=== PATIENT | female | born 1980 | race Caucasian/White ===

== ENCOUNTER 2019-03-28 16:37 | Inpatient (IN) | payer SELFPAY ==
[~2019-03-28] VITALS: Ht 160 cm; Wt 100.0 kg
[~2019-03-28 16:37] MED LIST: ALPR1TAB2 PO; ESTR1TAB15 PO; FLUO40CA9 PO; HYDR-2769 PO
[2019-03-28] MEDS ORDERED: IV NORMAL SALINE 1,000ML 1,000 ML IV SCH (16:53)
[2019-03-28] MEDS ORDERED: IPRATRPIUM/ALBUTEROL 0.5/2.5MG 3 ML NEBU. NEB ONE (17:00)
--- NOTE | 2019-03-28 17:02 | PHYS DOC ---
Past History Past Medical History: Anxiety, Bipolar, Depression, Endometriosis, Fibromyalgia (JACOBY HARDY DO) Past Surgical History: Cholecystectomy, , Hysterectomy (JACOBY HARDY DO) Smoking: Less than 1pk/day Alcohol Use: Occasionally Drug Use: None (JACOBY HARDY DO) Adult General Chief Complaint Chief Complaint: SHORTNESS OF BREATH HPI HPI Patient is a 38-year-old female presents complaining of fever, cough, and shortness of breath. Increased shortness of breath with exertion. This started approximately 3 days ago. No nausea or vomiting. No out of the country travel. Nonproductive cough. No new leg swelling. Exertion makes symptoms worse. Rest makes them better. She is a smoker, having stopped 2 days ago when symptoms started[] (JACOBY HARDY DO) Review of Systems Review of Systems Constitutional: Denies shaking chills, subjective fever. No home temperature has been taken [] Eyes: Denies change in visual acuity, redness, or eye pain [] HENT: Denies nasal congestion or sore throat [] Respiratory: See history of present illness[] Cardiovascular: No chest pain or palpitations[] GI: Denies abdominal pain, nausea, vomiting, bloody stools or diarrhea [] : Denies dysuria or hematuria [] Musculoskeletal: Denies back pain or joint pain [] Integument: Denies rash or skin lesions [] Neurologic: Denies headache, focal weakness or sensory changes [] Endocrine: Denies polyuria or polydipsia [] All other systems were reviewed and found to be within normal limits, except as documented in this note. (JACOBY HARDY DO) Allergies Allergies Allergies Coded Allergies Type Severity Reaction Last Updated Verified loratadine Allergy Mild Anxiety 01/20/14 No pseudoephedrine Allergy Mild Anxiety 01/20/14 No (JACOBY HARDY DO) Physical Exam Physical Exam Constitutional: Well developed, well nourished, no acute distress, non-toxic appearance. [] HENT: Normocephalic, atraumatic, bilateral external ears normal, oropharynx moist, no oral exudates, nose normal. [] Eyes: PERRLA, EOMI, conjunctiva normal, no discharge. [] Neck: Normal range of motion, no tenderness, supple, no stridor. [] Cardiovascular:Heart rate is tachycardic in the 100s with a regular rhythm, no murmur [] Lungs & Thorax: Bilateral breath sounds with expiratory wheezes, no retr actions[] Abdomen: Bowel sounds normal, soft, no tenderness, no masses, no pulsatile masses. [] Skin: Warm, dry, no erythema, no rash. [] Back: No tenderness, no CVA tenderness. [] Extremities: No tenderness, no cyanosis, no clubbing, ROM intact, no edema. [] Neurologic: Alert and oriented X 3, normal motor function, normal sensory function, no focal deficits noted. [] Psychologic: Affect normal, judgement normal, mood normal. [] (JACOBY HARDY DO) Current Patient Data Vital Signs Vital Signs Date Time Temp Pulse Resp B/P (MAP) Pulse Ox O2 Delivery O2 Flow Rate FiO2 03/28/19 16:37 98.3 110 26 150/89 (109) 92 Room Air (JACOBY HARDY DO) EKG EKG EKG shows a sinus tachycardia at 105 bpm, normal axis, QTC of 459 ms, no ST elevations. Interpreted by me at 1712.[] (JACOBY HARDY DO) Radiology/Procedures Radiology/Procedures [] (JACOBY HARDY DO) Radiology/[place] [address] IMAGING REPORT Signed PATIENT: GET WELLINGTON ACCOUNT: [id number] : 1980 LOCATION: ER AGE: 38 SEX: F EXAM STATUS: REG ER ORD. PHYSICIAN: JACOBY HARDY DO REASON: shortness of breath, fever PROCEDURE: CHEST PA & LATERAL Exam: Chest 2 views INDICATION: Shortness of breath TECHNIQUE: An to lateral views the chest Comparisons: None FINDINGS: The cardiomediastinal silhouette and pulmonary vessels are within normal limits. Patchy airspace disease noted within the left lingula. Remaining lungs are clear. IMPRESSION: Patchy airspace disease in the lingula, may represent pneumonia. Follow-up imaging posttreatment to ensure resolution is recommended. Electronically signed by: Saundra Donovan MD (03/28/2019 6:02 PM) [facility] DICTATED AND SIGNED BY: SAUNDRA DONOVAN MD DATE: 03/28/191801 CC: CHERYLE ATWOOD; JACOBY HARDY DO; ROMMEL RUCKER MD ~ [address] [address] IMAGING REPORT Signed PATIENT: GET WELLINGTON ACCOUNT: [id number] : 1980 LOCATION: ER AGE: 38 SEX: F EXAM STATUS: REG ER ORD. PHYSICIAN: ROMMEL RUCKER MD REASON: dyspnea, elev. d-dimer, OMNI 350, 100ml PROCEDURE: CT ANGIOGRAPHY CHEST Exam: CT of chest with contrast INDICATION: Dyspnea TECHNIQUE: Sequential axial images through the chest obtained following the administration of 100 mL of Omni 350 IV contrast. Sagittal and coronal reformatted images were reconstructed from the axial data and reviewed. 3-D reformatted images were reconstructed from the axial data and reviewed. Comparisons: Chest x-ray same day FINDINGS: Visualized portions of the thyroid are unremarkable. There are several prominent mildly enlarged prevascular, pretracheal and bilateral hilar lymph nodes noted. Heart size is normal. No pericardial effusion. Thoracic aorta has a normal course and caliber. Pulmonary artery is not enlarged. No pulmonary was identified within the main, lobar or proximal segmental pulmonary arteries. Evaluation of the more distal arteries is limited secondary to respiratory motion. Airways are patent. There is patchy ground glass opacity noted within the lingula, left lower lobe, and additionally the right middle lobe. Linear bandlike opacity at the right upper lobe may represent scarring or atelectasis. No suspicious lung nodules are identified. No pleural effusion or thickening. Visualized upper abdomen is unremarkable. No suspicious osseous lesions or acute fractures. IMPRESSION: 1. No pulmonary embolus identified within the main, lobar or proximal segmental pulmonary arteries. Limitations as described above. 2. Patchy areas of groundglass opacity noted in the lungs bilaterally as described above, may be infectious or inflammatory in etiology. Follow-up imaging posttreatment to ensure resolution is recommended. Exposure: One or more of the following in the visualized dose reduction techniques were utilized for this examination: 1. Automated exposure control 2. Adjustment of the MA and/or KV according to patient size 3. Use of iterative of reconstructive technique Electronically signed by: Saundra Donovan MD (03/28/2019 7:46 PM) [facility] DICTATED AND SIGNED BY: SAUNDRA DONOVAN MD DATE: 03/28/191945 CC: CHERYLE ATWOOD; ROMMEL RUCKER MD ~ (ROMMEL RUCKER MD) Course & Med Decision Making Course & Med Decision Making Pertinent Labs and Imaging studies reviewed. (See chart for details) ED course: Patient arrived, was placed in bed, and tolerated exam well. She was given a DuoNeb which improved her breath sounds, making the wheezing more audible. Patient was noted to be hypoxic after the initial breathing treatment a nd so was placed on 2 L nasal cannula oxygen which improved her oxygen saturation. She was transported to and from radiology with any complications. She was started on an hour-long continuous albuterol nebulizer treatment. This is in progress at the time of this dictation. Patient care is endorsed to the nighttime physician at 1800 with laboratory testing and imaging results shalini bella[] (JACOBY HARDY DO) Course & Med Decision Making Impression: 1. Asthma/Bronchitis- Acute Exacerbation 2. Pneumonia- atypical/ vs Inflammatory 3. Hypokalemia 2.98 4. Elevated D-dimer 0.86 5. Tobacco Use Pt. admitted to Dr Thao for further tx. and evaluation. (ROMMEL RUCKER MD) Dragon Disclaimer Dragon Disclaimer This electronic medical record was generated, in whole or in part, using a voice recognition dictation system. (JACOBY HARDY DO) Departure Departure: Disposition: HOME/RESIDENCE PRIOR TO ADM Condition: STABLE Referrals: CHERYLE ATWOOD (PCP) Ervin Disclaimer This chart was dictated in whole or in part using Voice Recognition software in a busy, high-work load, and often noisy Emergency Department environment. It may contain unintended and wholly unrecognized errors or omissions. (ROMMEL RUCKER MD) JCAOBY HARDY DO Mar 28, 2019 17:02 ROMMEL RUCKER MD Mar 28, 2019 20:08
[2019-03-28 17:28] LABS: BASO # 0.1 x10^3/uL (0.0-0.2); BASO % 1 % (0-3); EOS # 0.1 x10^3/uL (0.0-0.7); EOS % 1 % (0-3); HEMATOCRIT 43.9 % (36.0-47.0); HEMOGLOBIN 14.5 g/dL (12.0-15.5); LYMPH # 2.3 x10^3/uL (1.0-4.8); LYMPH % 24 % (24-48); MEAN CORPUSCULAR HEMOGLOBIN 29 pg (25-35); MEAN CORPUSCULAR HGB CONC 33 g/dL (31-37); MEAN CORPUSCULAR VOLUME 89 fL (79-100); MONO # 0.8 x10^3/uL (0.0-1.1); MONO % 8 % (0-9); NEUT # 6.3 x10^3uL (1.8-7.7); NEUT % 66 % (31-73); PLATELET COUNT 263 x10^3/uL (140-400); RED BLOOD COUNT 4.96 x10^6/uL (3.50-5.40); RED CELL DISTRIBUTION WIDTH 14.6 % (11.5-14.5); WHITE BLOOD COUNT 9.6 x10^3/uL (4.0-11.0)
[2019-03-28] MEDS ORDERED: ALBUTEROL SULFATE 2.5 MG/3 ML NEBU. CONT NEB ONE (17:30)
[2019-03-28 18:05] LABS: INFLUENZA A PATIENT NEGATIVE (NEGATIVE); INFLUENZA B PATIENT NEGATIVE (NEGATIVE)
--- NOTE | 2019-03-28 18:05 | RAD ---
Exam: Chest 2 views INDICATION: Shortness of breath TECHNIQUE: An to lateral views the chest Comparisons: None FINDINGS: The cardiomediastinal silhouette and pulmonary vessels are within normal limits. Patchy airspace disease noted within the left lingula. Remaining lungs are clear. IMPRESSION: Patchy airspace disease in the lingula, may represent pneumonia. Follow-up imaging posttreatment to ensure resolution is recommended. Electronically signed by: Saundra Echavarria MD (03/28/2019 6:02 PM) [facility]
[2019-03-28] MEDS ORDERED: methylPREDNISolone SOD SUCC PF 125 MG/2 ML VIAL. IV ONE (18:30)
[2019-03-28 18:32] LABS: ALBUMIN 3.2 g/dL (3.4-5.0); ALBUMIN/GLOBULIN RATIO 0.6 (1.0-1.7); CALCIUM 8.8 mg/dL (8.5-10.1); CREATININE 0.7 mg/dL (0.6-1.0); GFR 94.2; TOTAL BILIRUBIN 0.4 mg/dL (0.2-1.0); TOTAL PROTEIN 8.2 g/dL (6.4-8.2)
[2019-03-28 18:36] LABS: POTASSIUM 2.8 mmol/L (3.5-5.1)
[2019-03-28] MEDS ORDERED: POTASSIUM CHLORIDE 20 MEQ TABLET.ER. PO ONE (18:45)
[2019-03-28] MEDS ORDERED: CONTRAST GIVEN MC PRN (19:00)
[2019-03-28] MEDS ORDERED: IOHEXOL 350 MG/ML 100 ML VIAL. IV ONE (19:00)
[2019-03-28] MEDS ORDERED: ONDANSETRON PF 4 MG/2 ML VIAL. IV PRN (19:15)
[2019-03-28] MEDS ORDERED: ACETAMINOPHEN 325 MG TABLET PO PRN (19:15)
[2019-03-28 19:34] LABS: BILIRUBIN,URINE NEG (NEG); CLARITY,URINE CLEAR; COLOR,URINE YELLOW; GLUCOSE,URINE NEG (NEG)
[2019-03-28 19:35] LABS: BACTERIA,URINE 0 /HPF (0-FEW); NITRITE,URINE NEG (NEG); SQUAMOUS EPITHELIAL CELL,UR FEW /LPF; UROBILINOGEN,URINE 0.2 mg/dL (0.2 mg/dL); WBC,URINE 0 /HPF (0-4)
--- NOTE | 2019-03-28 19:48 | RAD ---
Exam: CT of chest with contrast INDICATION: Dyspnea TECHNIQUE: Sequential axial images through the chest obtained following the administration of 100 mL of Omni 350 IV contrast. Sagittal and coronal reformatted images were reconstructed from the axial data and reviewed. 3-D reformatted images were reconstructed from the axial data and reviewed. Comparisons: Chest x-ray same day FINDINGS: Visualized portions of the thyroid are unremarkable. There are several prominent mildly enlarged prevascular, pretracheal and bilateral hilar lymph nodes noted. Heart size is normal. No pericardial effusion. Thoracic aorta has a normal course and caliber. Pulmonary artery is not enlarged. No pulmonary was identified within the main, lobar or proximal segmental pulmonary arteries. Evaluation of the more distal arteries is limited secondary to respiratory motion. Airways are patent. There is patchy ground glass opacity noted within the lingula, left lower lobe, and additionally the right middle lobe. Linear bandlike opacity at the right upper lobe may represent scarring or atelectasis. No suspicious lung nodules are identified. No pleural effusion or thickening. Visualized upper abdomen is unremarkable. No suspicious osseous lesions or acute fractures. IMPRESSION: 1. No pulmonary embolus identified within the main, lobar or proximal segmental pulmonary arteries. Limitations as described above. 2. Patchy areas of groundglass opacity noted in the lungs bilaterally as described above, may be infectious or inflammatory in etiology. Follow-up imaging posttreatment to ensure resolution is recommended. Exposure: One or more of the following in the visualized dose reduction techniques were utilized for this examination: 1. Automated exposure control 2. Adjustment of the MA and/or KV according to patient size 3. Use of iterative of reconstructive technique Electronically signed by: Saundra Echavarria MD (03/28/2019 7:46 PM) [facility]
[2019-03-28] MEDS: POTASSIUM CHLORIDE 10MEQ 100 ML IV SCH ×2 (20:12→21:51)
[2019-03-28] MEDS: ENOXAPARIN ** NOTE DOSE ** SYRINGE SQ SCH (20:12)
[2019-03-28] MEDS: IV RINGERS SOLUTION,LACTATED 1,000 ML IV SCH (20:12)
[2019-03-28] MEDS ORDERED: AZITHROMYCIN 250 MG TABLET. PO STA (20:14)
[2019-03-28] MEDS: IPRATRPIUM/ALBUTEROL 0.5/2.5MG 3 ML NEBU. NEB SCH (20:17)
[2019-03-28 20:35] VITALS: BP 138/94
--- NOTE | 2019-03-28 21:00 | NUR ---
The patient, GET WELLINGTON, 38 y/o, F admitted by ARNALDO CUADRA MD, was given written information regarding hospital policies, unit procedures and contact persons. Valuables were checked and logged. Call light in place. Will continue to monitor.
[2019-03-28 21:19] LABS: BARBITURATES NEG (NEG); BENZODIAZEPINES NEG (NEG); CANNABINOIDS POS (NEG); COCAINE NEG (NEG); METHADONE NEG (NEG); OPIATES POS (NEG); PHENCYCLIDINE NEG (NEG)
[2019-03-28 21:23] LABS: AMPHETAMINE/METHAMPHETAMINE NEG (NEG)
[2019-03-28] MEDS: ALPRAZolam 0.5 MG TABLET PO SCH (21:52)
[2019-03-29] MEDS: POTASSIUM CHLORIDE 10MEQ 100 ML IV SCH ×2 (00:41→02:23)
[2019-03-29 01:06] VITALS: BP 158/101
[2019-03-29] MEDS: IV RINGERS SOLUTION,LACTATED 1,000 ML IV SCH ×3 (01:47→10:58)
[2019-03-29] MEDS ORDERED: BENZOCAINE/MENTHOL LOZNGE 18'S BOX. PO PRN (03:00)
[2019-03-29] MEDS: IPRATRPIUM/ALBUTEROL 0.5/2.5MG 3 ML NEBU. NEB SCH ×3 (05:13→16:16)
[2019-03-29 05:48] VITALS: BP 141/97
[2019-03-29] MEDS ORDERED: POTASSIUM CHLORIDE 20 MEQ TABLET.ER. PO ONE ×2 (06:00→09:45)
[2019-03-29 06:48] LABS: BASO % 0 % (0-3); EOS % 0 % (0-3); HEMATOCRIT 40.9 % (36.0-47.0); HEMOGLOBIN 13.3 g/dL (12.0-15.5); LYMPH # 1.5 x10^3/uL (1.0-4.8); LYMPH % 21 % (24-48); MEAN CORPUSCULAR HEMOGLOBIN 29 pg (25-35); MEAN CORPUSCULAR HGB CONC 33 g/dL (31-37); MEAN CORPUSCULAR VOLUME 90 fL (79-100); MONO # 0.2 x10^3/uL (0.0-1.1); MONO % 3 % (0-9); NEUT # 5.5 x10^3uL (1.8-7.7); NEUT % 76 % (31-73); PLATELET COUNT 270 x10^3/uL (140-400); RED BLOOD COUNT 4.55 x10^6/uL (3.50-5.40); RED CELL DISTRIBUTION WIDTH 14.8 % (11.5-14.5); WHITE BLOOD COUNT 7.3 x10^3/uL (4.0-11.0)
[2019-03-29 06:59] LABS: CALCIUM 8.8 mg/dL (8.5-10.1); CREATININE 0.7 mg/dL (0.6-1.0); GFR 94.2; POTASSIUM 3.4 mmol/L (3.5-5.1)
--- NOTE | 2019-03-29 08:42 | RAD ---
Bilateral lower extremity venous duplex Doppler ultrasound HISTORY: Elevated d-dimer, shortness of breath, leg edema. FINDINGS: No DVT evident with compressibility, patent color Doppler blood flow, respiratory variability and augmentation of blood flow the common femoral veins, profunda femoral veins, superficial femoral veins and popliteal veins. No DVT evident with patent color Doppler blood flow and augmentation of blood flow the posterior tibial veins in the calves. IMPRESSION: Negative legs for DVT. Electronically signed by: Eyal Santiago MD (03/29/2019 8:39 AM) [facility]
[2019-03-29] MEDS ORDERED: FLU VAX QS 2019-20 (36MOS+)/PF 0.5 ML SYRINGE. VAX IM ONE (09:00)
[2019-03-29] MEDS: methylPREDNISolone SOD SUCC PF 125 MG/2 ML VIAL. IV SCH (09:06)
[2019-03-29] MEDS: AZITHROMYCIN 250 MG TABLET. PO SCH (09:07)
[2019-03-29] MEDS: ENOXAPARIN ** NOTE DOSE ** SYRINGE SQ SCH (09:07)
[2019-03-29] MEDS: LACTOBACILLUS RHAMNOSUS GG 1 CAPSULE. PO SCH ×2 (09:08→20:45)
[2019-03-29] MEDS: ALPRAZolam 0.5 MG TABLET PO SCH (09:09)
[2019-03-29 11:10] VITALS: BP 149/89
[2019-03-29] MEDS ORDERED: HYDROcodone/APAP 10/325 1 TAB TABLET PO PRN (13:45)
[2019-03-29] MEDS: ESTRADIOL 1 MG TABLET PO SCH (14:13)
[2019-03-29] MEDS: FLUoxetine HCL 20 MG CAPSULE PO SCH (14:13)
--- NOTE | 2019-03-29 15:30 | HP ---
ADMIT DATE: 03/28/2019 HISTORY OF PRESENT ILLNESS: The patient is a 38-year-old female patient, who came to the Emergency Room complaining of shortness of breath, cough and fever, increased shortness of breath on exertion that has been going on for almost 3 days. The cough is productive with initially clear and eventually greenish to brownish sputum and her symptoms are made worse by exertion, rest relieved the symptoms. She is a smoker; however, she has not been able to smoke for the last 2 days. She was evaluated in the Emergency Room. Her lab work showed her white cell count was 9600. D-dimer was high at 0.86. Her chemistry showed hypokalemia with potassium 2.8. However, her influenza A and B were negative. Urinalysis was unremarkable and toxic screen was positive for opiates and cannabinoids. Her chest x-ray showed that she has patchy airspace disease in the lingula, may represent pneumonia and given her elevated D-dimer, she had had a CT angio of the chest showed no evidence of pulmonary emboli, identified within the main, lobar, or proximal segmental pulmonary arteries. She has patchy areas of ground glass opacities noted in the lungs bilaterally as described. The patient was admitted with diagnosis of community-acquired pneumonia and was started on azithromycin as well as ceftriaxone. PAST MEDICAL HISTORY: Significant for fibromyalgia, bipolar disorder, anxiety disorder. PAST SURGICAL HISTORY: Significant for cholecystectomy, total abdominal hysterectomy, bilateral salpingo-oophorectomy. She has also D and C. She is known to have polycystic ovary syndrome and endometriosis. ALLERGIES: SHE IS ALLERGIC TO CLARITIN-D. MEDICATIONS: She is currently on following medications: She is on hydrocodone/APAP 10/325 one tablet every 6 hours, fluoxetine 40 mg daily, alprazolam 1 mg twice a day, estradiol 1 mg daily. FAMILY HISTORY: She has half-brother from her mother's side and half-brother and half-sister from father's side, all healthy. Her father is alive at age of 53 and seemingly healthy and mother is alive at age of 53, also seemingly healthy. SOCIAL HISTORY: She is , has 1 daughter. She smokes a pack a day, does not drink alcohol or use any recreational drugs. She is a pscn-ie-kqoy mom. REVIEW OF SYSTEMS: As per history of present illness. PHYSICAL EXAMINATION: GENERAL: On arrival to the Emergency Room, the patient was clearly tachypneic, tachycardic, but there was no pallor, jaundice, cyanosis or thyromegaly. No jugular venous distention. No limb edema. VITAL SIGNS: Her heart rate on arrival was 110, blood pressure was 150/89, her temperature was 98.3, respiratory rate was 26 and oxygen saturation was 92% on room air. HEAD, EYES, EARS, NOSE AND THROAT: Showed normocephalic, atraumatic. NECK: Supple. HEART: Showed normal first and second heart sounds. No gallop, rub or murmur. CHEST: Shows central trachea, equal bilateral chest expansion, air entry with expiratory wheeze. No crackles. ABDOMEN: Soft, nontender. No guarding or rigidity. No organomegaly. All hernial orifices intact. Bowel sounds normal. NEUROLOGIC: She was alert, oriented x 3, normal motor and sensory function with no obvious lateralizing sign. LABORATORY DATA: While in the Emergency Room, her EKG showed that she was in sinus tachycardia with a heart rate of [address]-segment elevation. Her chest x-ray showed that the cardiomediastinal silhouette and pulmonary vessels are within normal limits, patchy airspace disease noted within the left lingula, remaining lungs are clear. Her lab work showed that her white cell count was 9600, hemoglobin 14.5, hematocrit 44, MCV 89 and platelet count 263,000. Her serum sodium was 138, potassium 2.8, chloride 99, bicarbonate 27, anion gap of 12, BUN 5, creatinine 0.7, estimated GFR was 94 mL per minute, her glucose was 108, calcium was 8.8. Total bilirubin, AST, ALT, alkaline phosphatase were normal. Total protein was 8.2 and albumin was 3.2. D-dimer was 0.86. Urinalysis was essentially unremarkable. Toxic screen was positive for opiates and cannabinoids. Her influenza A and B were negative. Given that she has elevated D-dimer, she underwent CT angio of the chest, which basically showed no evidence of pulmonary emboli; however, she did have patchy areas of ground glass opacity noted. The lungs bilaterally were noted in the left lingula and left lower lobe and additionally in the right middle lobe linear band-like, but she has right upper lobe, may represent scarring or atelectasis, no suspicious lung nodules are described. No pleural effusion or thickening. The patient was admitted with a diagnosis of community-acquired pneumonia, was treated with ceftriaxone and Zithromax and methylprednisolone together with albuterol and Atrovent. ARNALDO CUADRA MD DR: TORRIE/marilyn JOB#: [id number] / [id number]
[2019-03-29 15:53] VITALS: BP 159/95
[2019-03-29] MEDS ORDERED: ALPRAZolam 0.5 MG TABLET PO PRN (18:15)
[2019-03-29 20:19] VITALS: BP 156/92
[2019-03-29] MEDS ORDERED: ALPRAZolam 0.5 MG TABLET PO SCH (21:00)
[2019-03-29 23:09] VITALS: BP 130/80
--- NOTE | 2019-03-30 03:29 | PN ---
DATE: SUBJECTIVE: The patient is resting, slightly propped up in bed, in no apparent distress. She continued to have cough, some chest tightness, and wheezing, although much less than yesterday. PHYSICAL EXAMINATION: GENERAL: When I examined her, she looked well and was clearly in no apparent respiratory distress. No pallor, jaundice, cyanosis, or thyromegaly. No jugular venous distention or limb edema. VITAL SIGNS: Her heart rate was 115, blood pressure 149/89, temperature was 97, respiratory rate 18, and oxygen saturation was 92%. HEAD, EYES, EARS, NOSE AND THROAT: Showed normocephalic, atraumatic. NECK: Supple. HEART: Showed normal first and second heart sounds. No gallop or murmur. CHEST: Clear to auscultation. No crepitation or rhonchi. ABDOMEN: Distended, soft, nontender. No guarding or rigidity. No organomegaly. All hernial orifices intact. Bowel sounds normal. NEUROLOGIC: She was awake, alert, and responding appropriately. All cranial nerves intact. She moves extremities without difficulty. She ambulates without assistance or assistive devices. LABORATORY DATA: Her white cell count was 7300, hemoglobin 13, hematocrit 40, MCV 90, and platelet count 270,000. Serum sodium 140, potassium 3.4, chloride 105, bicarbonate 24, anion gap of 11, BUN 4, creatinine 0.7, estimated GFR was 94 mL per minute. Her glucose 172, calcium was 8.8. Her D-dimer was high at 0.86. She did have bilateral lower extremity Doppler ultrasound, which showed no DVT evident with compressibility patent, color Doppler blood flow respiratory variability and augmentation of blood flow, common femoral vein, profunda femoral vein, superficial femoral vein, and popliteal veins. ASSESSMENT: Community-acquired pneumonia. The patient has a history of childhood asthma that outgrows, but she obviously has severe bronchospasm and she is a smoker. Nursing staff said that she has also episodes of desaturation at night time which is raising the possibility that she might have obstructive sleep apnea. PLAN: My plan is to discontinue IV fluid, ____ the therapeutic dose of Lovenox. Continue with IV ceftriaxone and repeat her lab work again and decide the further management accordingly. ARNALDO CUADRA MD DR: TORRIE/marilyn JOB#: [id number] / [id number]
[2019-03-30 06:00] VITALS: BP 145/84
[2019-03-30 06:43] LABS: CALCIUM 8.9 mg/dL (8.5-10.1); CREATININE 0.7 mg/dL (0.6-1.0); GFR 94.2; POTASSIUM 3.4 mmol/L (3.5-5.1)
[2019-03-30] MEDS: LACTOBACILLUS RHAMNOSUS GG 1 CAPSULE. PO SCH (08:24)
[2019-03-30] MEDS: methylPREDNISolone SOD SUCC PF 125 MG/2 ML VIAL. IV SCH (08:24)
[2019-03-30] MEDS: AZITHROMYCIN 250 MG TABLET. PO SCH (08:24)
[2019-03-30] MEDS: FLUoxetine HCL 20 MG CAPSULE PO SCH (08:25)
[2019-03-30] MEDS: ESTRADIOL 1 MG TABLET PO SCH (08:25)
[2019-03-30] MEDS ORDERED: ENOXAPARIN 40 MG/0.4 ML SYRINGE. SQ SCH (09:00)
[2019-03-30 10:56] VITALS: BP 128/87
[2019-03-30] MEDS ORDERED: AZIT250T PO (14:05)
[2019-03-30] MEDS ORDERED: PRED1TAB PO (14:05)
[2019-03-30] MEDS ORDERED: CEFD300C PO (14:05)
--- NOTE | 2019-03-30 15:28 | NUR ---
pt off the unit, discharged, iv's d/c. prescriptions and discharge instructions provided, verbalized understanding, pt ambulated off the unit.
--- NOTE | 2019-03-30 15:39 | DS ---
DATE OF DISCHARGE: HOSPITAL COURSE: The patient is a 38-year-old female patient who was admitted with fever, cough and increased shortness of breath, has been going on for almost 3 days. She was started on IV antibiotic in the form of Zithromax and Rocephin together with prednisone and bronchodilator and she did actually very well. Her potassium was noted to be also extremely low, so we replenished her potassium. She was hypoxic, requiring up to 3 liters of oxygen. She did very well today. She is maintaining her oxygen saturation at 94% on room air. She is afebrile. Her white cell count is normal. PHYSICAL EXAMINATION: GENERAL: On examining her, she looked well and was clearly in no apparent respiratory distress. No pallor, jaundice, cyanosis or thyromegaly. No jugular venous distension. No limb edema. VITAL SIGNS: Her heart rate was 84, blood pressure was 128/87, temperature was 98.9, respiratory rate was 30 and oxygen saturation was 94% on room air. HEAD, EYES, EARS, NOSE AND THROAT: Showed normocephalic, atraumatic. NECK: Supple. HEART: Showed normal first and second heart sounds. No gallop or murmur. CHEST: Clear to auscultation. No crepitation or rhonchi. ABDOMEN: Distended, soft, nontender. No guarding or rigidity. No organomegaly. All hernial orifice intact. Bowel sounds normal. NEUROLOGIC: She was awake, alert, responding appropriately. All cranial nerves intact. NEUROLOGICAL: She was awake, alert, responding appropriately. All cranial nerves intact. She moves extremities without difficulty. She ambulates without assistance or assistive devices. Her intake was 2350, output was 500. LABORATORY DATA: As of this morning, her white cell count was 7300, hemoglobin 13, hematocrit 41, MCV 90, and platelet count of 270,000. Her chemistry showed her serum sodium 143, potassium 3.4, chloride 106, bicarbonate 27, anion gap of 10, BUN 6, creatinine 0.7, estimated GFR was 94 mL per minute. Her glucose was 92, calcium was 8.9. DISCHARGE MEDICATIONS: She was discharged home to continue on following medications: Zithromax 250 mg once a day for 5 more days, cefdinir 300 mg twice a day for 6 more days, prednisone in the form of Medrol Dosepak. She should also continue on Xanax 1 mg twice a day, estradiol 1 mg once a day, fluoxetine or Prozac 40 mg once a day and hydrocodone/APAP 10/325 one tablet every 6 hours. FINAL DISCHARGE DIAGNOSES: Community-acquired pneumonia, questionable chronic obstructive pulmonary disease exacerbation. Other medical problems include fibromyalgia, bipolar disorder, anxiety disorder. ARNALDO CUADRA MD DR: TORRIE/marilyn JOB#: [id number] / [id number]
== END 2019-03-30 15:31 | disposition home or self-care (01) | DRG 190 ==
LOC: ER 16:37 → ICU 20:23
PROVIDERS: ADMIT Internal Medicine; ATTEND Internal Medicine
DX: J44.1 Chronic obstructive pulmonary disease with (acute) exacerbation (principal); J18.9 Pneumonia, unspecified organism; J45.901 Unspecified asthma with (acute) exacerbation; J44.0 Chronic obstructive pulmonary disease with (acute) lower respiratory infection; E87.6 Hypokalemia; F17.210 Nicotine dependence, cigarettes, uncomplicated; J45.909 Unspecified asthma, uncomplicated; Z90.710 Acquired absence of both cervix and uterus; F31.9 Bipolar disorder, unspecified; F41.9 Anxiety disorder, unspecified; M79.7 Fibromyalgia; R09.02 Hypoxemia; Z87.09 Personal history of other diseases of the respiratory system; Z88.8 Allergy status to other drugs, medicaments and biological substances; Z90.722 Acquired absence of ovaries, bilateral; J20.9 Acute bronchitis, unspecified; Z90.49 Acquired absence of other specified parts of digestive tract
CPT/HCPCS: 36415; 71046; 71275; 80048; 80053; 80307; 81001; 83880; 84484; 85025; 85379; 87040; 87804; 90471; 90686; 93005; 93970; 94640; 96361; 96374; G0238; J0456; J0696; J1650; J2930; J3480; J7120; J7613; J7620; Q9967; 99285-25; J7030